=== PATIENT | male | born 1985 | race African-American/Black ===

== ENCOUNTER 2019-03-31 11:28 | Emergency (ER) | payer SELFPAY ==
[2019-03-31] MEDS ORDERED: Ketorolac Tromethamine 60 MG/2 ML VIAL ONE (13:26)
[2019-03-31] MEDS ORDERED: Sulfameth/Trimethoprim DS 800-160mg TAB ONE (13:26)
[2019-03-31] MEDS ORDERED: Acyclovir 800 mg Tablet PO SCH (13:30)
== END 2019-03-31 14:45 | disposition home or self-care (01) ==
LOC: ERS 11:28
DX: L03.211 Cellulitis of face (principal); F17.210 Nicotine dependence, cigarettes, uncomplicated
CPT/HCPCS: 96372; 99283; J1885

== ENCOUNTER 2023-11-22 10:39 | Emergency (ER) | payer SELFPAY ==
[2023-11-22] MEDS ORDERED: Iopamidol-370 76% 500 ML MDV (1 ML CHARGE) ONE (10:45)
[2023-11-22 11:56] LABS: #Basophils 0.04 10x3/uL (0.0-0.2); %Basophils 0.8 % (0.0-1.0); %Eosinophils 2.4 % (0.0-10.0); %Lymphocytes 22.4 % (21.0-51.0); %Monocytes 7.5 % (0.0-10.0); %Neutrophils 66.7 % (42.0-75.0); Hematocrit 45.7 % (42.0-52.0); Hemoglobin 15.2 g/dL (14.0-18.0); Mean Corpuscular HGB CONC 33.3 g/dL (32.0-36.0); Mean Corpuscular Hemoglobin 31.5 pg (27.0-31.0); Mean Corpuscular Volume 94.8 fL (78.0-98.0); Mean Platelet Volume 8.9 fL (7.4-10.4); Platelet Count 233 10x3/uL (130-400); RBC Distribution Width 14.6 % (11.5-14.5); Red Blood Cell (RBC) Count 4.82 mill/uL (4.70-6.10)
[2023-11-22 12:35] LABS: Anion Gap 9 mmol/L (10-20); BUN (Urea Nitrogen) 8 mg/dL (8.9-20.6); Calc. Creatinine Clearance 0 mL/min (70-130); Calcium 9.4 mg/dL (7.8-10.44); Carbon Dioxide 31 mmol/L (22-29); Chloride 103 mmol/L (98-107); Estimated GFR 85; Glucose 89 mg/dL (70-105); Potassium 4.3 mmol/L (3.5-5.1); Sodium 139 mmol/L (136-145)
[2023-11-22] MEDS ORDERED: Ketorolac Tromethamine 30 MG (1 mL) VIAL ONE (13:07)
[2023-11-22 13:33] LABS: Bacteria/HPF None Seen HPF (None Seen); Bilirubin Negative (Negative); Blood, Urine Negative (Negative); CAUTI Indications for Culture Pelvic or flank pain; Clarity Clear (Clear); Glucose, Urine (Dipstick) Normal (Negative); Ketone, Urine 10 mg/dL (Negative); Leukocyte 75 Leu/uL (Negative); Nitrite Negative (Negative); Protein, Urine (Dipstick) Negative (Neg-Trace); RBC/HPF 0-3 HPF (0-3); Specific Gravity, Urine 1.019 (1.002-1.036); Squamous Epithelial 0-3 HPF (0-3); Urobilinogen Normal mg/dL (Less than 2)
[2023-11-22 14:02] LABS: Urine Culture Reflex Yes Yes
[2023-11-22 22:48] LABS: Chlam.trachomatis by PCR,Urine Not Detected (NotDetected); GC N.gonorrhoeae PCR,UrineVOID Not Detected (NotDetected)
== END 2023-11-22 17:01 | disposition home or self-care (01) ==
LOC: ERS 10:39
DX: N41.0 Acute prostatitis (principal); F17.210 Nicotine dependence, cigarettes, uncomplicated
CPT/HCPCS: 36415; 74177; 76870; 80048; 81001; 85025; 87086; 87491; 87591; 93976; 96374; J1885